=== PATIENT | male | born 1955 | race Two or more races ===

== ENCOUNTER 2017-05-31 15:13 | Inpatient (IN) | payer MEDICARE, MEDICAID ==
[~2017-05-31] VITALS: Ht 170.2 cm; Wt 59.0 kg
--- NOTE | 2017-05-31 15:13 | NUR ---
PT BIBRA TO ER BED 15. PER REPORT OD ON 25 PILLS OF KLONOPIN 0.5 W/ ALCOHOL. PER REPORT, PT IS DEPRESSED AND WANTS TO BECAUSE OF FAMILY ISSUES. PT LETHARGIC, GOWNED AND PLACED ON MONITOR. STABLE VITALS. AWAITING MD ROBERTS.
--- NOTE | 2017-05-31 15:19 | NUR ---
DR BUITRAGO AT BEDSIDE FOR EVAL.
[2017-05-31] MEDS ORDERED: IV NS 0.9% 1,000 ML BAG IV ONE (15:30)
[2017-05-31] MEDS ORDERED: CHARCOAL/SORBITOL SOLUTION 25 G/120 ML TUBE PO ONE (15:30)
[2017-05-31 15:40] LABS: BASOPHILS # (AUTO) 0.1 /CMM (0.0-0.2); BASOPHILS % (AUTO) 0.7 % (0.0-2.0); EOSINOPHILS # (AUTO) 0.3 /CMM (0.0-0.7); EOSINOPHILS % (AUTO) 3.3 % (0.0-6.0); HEMATOCRIT 42 % (39-51); LYMPHOCYTES # (AUTO) 2.4 /CMM (0.8-4.8); MEAN CORPUSCULAR HEMOGLOBIN 31 PG (26.0-33.0); MEAN CORPUSCULAR HGB CONC 33 g/dl (31.0-36.0); MEAN CORPUSCULAR VOLUME 91 fL (80-96); MONOCYTES # (AUTO) 0.6 /CMM (0.1-1.30); MONOCYTES % (AUTO) 6.2 % (2.0-12.0); NEUTROPHILS # (AUTO) 5.7 /CMM (1.8-8.9); NEUTROPHILS % (AUTO) 63.8 % (43.0-81.0); PLATELET COUNT (AUTO) 250 /CMM (150-450); RDW COEFFICIENT OF VARIATION 12.8 (11.5-15.0); WHITE BLOOD COUNT (AUTO) 9.1 K/uL (4.3-11.0)
[2017-05-31 15:47] LABS: CARBON DIOXIDE 28 mmol/L (21-32); CHLORIDE 103 mmol/L (98-107); CREATININE 0.8 mg/dL (0.6-1.3); GLUCOSE 87 mg/dL (74-106); POTASSIUM 3.6 mmol/L (3.5-5.1); SODIUM SERUM 138 mmol/L (136-145); UREA NITROGEN, BLOOD 8 mg/dL (7-18)
[2017-05-31 15:53] LABS: ACETAMINOPHEN < 2 ug/ml (10-30); ALANINE AMINOTRANSFERASE 17 U/L (12-78); ALBUMIN 3.5 g/dL (3.4-5.0); ALCOHOL, BLOOD 98 mg/dL (0-0); ALKALINE PHOSPHATASE 67 U/L (46-116); ASPARTATE AMINOTRANSFERASE 20 U/L (15-37); BILIRUBIN,DIRECT 0.1 mg/dL (0.0-0.2); BILIRUBIN,TOTAL 0.3 mg/dL (0.2-1.0); SALICYLATE 4.3 mg/dL (2.8-20.0); TOTAL PROTEIN, SERUM 6.9 g/dL (6.4-8.2)
[2017-05-31] MEDS ORDERED: ROSU5TAB PO (16:45)
[2017-05-31] MEDS ORDERED: CLON0.5T4 PO (16:45)
[2017-05-31] MEDS ORDERED: ICOS1CAP PO (16:45)
[2017-05-31] MEDS ORDERED: PREG25CA PO (16:45)
--- NOTE | 2017-05-31 16:56 | NUR ---
CALLED [facility], THEY SAID TO MONITOR PATIENT FOR 4-5 HOURS.
--- NOTE | 2017-05-31 16:58 | NUR ---
CALL FROM [facility] ALVARENGA SUP, ASSIGNED TO 116-1,WAITING FOR PATIENT TO BE D/C
--- NOTE | 2017-05-31 17:15 | NUR ---
REPORT GIVEN TO RYLEY. PT AWAITING TRANSFER TO FLOOR.
[2017-05-31 18:30] VITALS: BP 118/74
--- NOTE | 2017-05-31 18:30 | NUR ---
RN FRANK NOTE: RECEIVED PATIENT IN BED, WITH EYES CLOSED AND ALERT TO HIS NAME, BUT LETHARGIC MOST OF THE TIME. NOTED WITH O2 @3L/MIN VIA NC SATURATING @ 96%. RESPIRATION EVEN AND UNLABORED. DENIED PAIN. DAUGHTER, CLEO PRESENT AT THE BEDSIDE. ON SLACK COOPER, SR= 65. NOTED WITH NGT PLACED ON (R) NARE. KEPT NPO PER MD ORDER. SIDERAILS UP. BED ALARM AND LOCKED AT ALL TIMES. CALL LIGHT WITHIN REACH.
[2017-05-31] MEDS ORDERED: IV NS 0.9% 1,000 ML IV PRN (18:46)
[2017-05-31] MEDS ORDERED: Z GUARD REMEDY 2 OZ OINT TP PRN (19:00)
[2017-05-31] MEDS ORDERED: MAG HYDROX/AL HYDROX/SIMETH 30 ML UDC PO PRN (19:00)
[2017-05-31] MEDS ORDERED: ONDANSETRON HCL/PF 4 MG/2 ML VIAL IVP PRN (19:00)
[2017-05-31] MEDS ORDERED: ACETAMINOPHEN 325 MG TABLET PO PRN (19:00)
[2017-05-31] MEDS ORDERED: HYDROCODONE/APAP 5/325MG 1 EACH TABLET PO PRN (19:00)
[2017-05-31] MEDS ORDERED: MAGNESIUM HYDROXIDE 30 ML UDC PO PRN (19:00)
--- NOTE | 2017-05-31 19:30 | NUR ---
RN FRANK NOTE: PATIENT REMAINED ON 1:1 SITTER FOR SAFETY. REPORT GIVEN TO CHIRAG CASILLAS FOR CONTINUITY OF CARE. PATIENT'S DAUGHTER, CLEO REMAINED AT THE BEDSIDE.
--- NOTE | 2017-05-31 19:30 | NUR ---
FRANK RN INITIAL NOTES RECEIVED ASLEEP, AROUSABLE, LETHARGIC. DAUGHTER ANI AT BEDSIDE. PATIENT UNABLE TO PROVIDE INFORMATION. DAUGHTER ABLE TO PROVIDE INFORMATION. NO S/S OF PAIN OR DISCOMFORT. NO RESPIRATORY DISTRESS NOTED, 3LPMO2 VIA NC. ON TELE MONITOR SR 68. SKIN WARM AND DRY TO TOUCH. WITH RIGHT NARE NGT PATENT AND INTACT, IN PLACE. HOB ELEVATED. PER DAUGHTER, SHE WISHES HER FATHER TO BE FULL CODE. PER DAUGHTER PATIENT HAS HX OF ANXIET AND DEPRESSION. PATIENT OVERDOSED ON KLONOPIN MEDICATION. 1:1 SITTER AT BEDSIDE. BED ALARM ON. HOB ELEVATED. SIDE RAILS UP AND LOCKED. BED KEPT AT LOWEST POSITION. CALL LIGHT KEPT WITHIN EASY REACH. WILL CONTINUE TO MONITOR.
[2017-05-31 20:00] VITALS: BP 101/56
--- NOTE | 2017-05-31 21:33 | NUR ---
alexey rn notes received call from [facility], updated on patient.
--- NOTE | 2017-05-31 22:50 | NUR ---
FRANK RN NOTES PATIENT MORE AWAKE A/OX2, SLEEPY. REQUESTING TO DRINK WATER. INFORMED FORENSIC STRUCTURAL ENGINEER FRANCIS COMPARO. WITH ORDERS OK TO START DIET 2GM NA.
--- NOTE | 2017-05-31 22:52 | NUR ---
FRANK RN NOTES GAVE PATIENT WATER, HOB 90 DEGREES. NO DIFFICULTY WITH SWALLOWING. WILL CONTINUE TO MONITOR.
[2017-06-01] VITALS: BP 121/64
[2017-06-01 04:00] VITALS: BP 112/58
[2017-06-01 07:08] LABS: EOSINOPHILS # (AUTO) 0.1 /CMM (0.0-0.7); HEMATOCRIT 41 % (39-51); HEMOGLOBIN 13.8 g/dL (13.5-17.5); LYMPHOCYTES # (AUTO) 1.9 /CMM (0.8-4.8); LYMPHOCYTES % (AUTO) 13.9 % (20.0-44.0); MEAN CORPUSCULAR HEMOGLOBIN 31 PG (26.0-33.0); MEAN CORPUSCULAR HGB CONC 34 g/dl (31.0-36.0); MEAN CORPUSCULAR VOLUME 93 fL (80-96); MONOCYTES # (AUTO) 0.7 /CMM (0.1-1.30); NEUTROPHILS # (AUTO) 11.1 /CMM (1.8-8.9); NEUTROPHILS % (AUTO) 80.1 % (43.0-81.0); PLATELET COUNT (AUTO) 218 /CMM (150-450); RDW COEFFICIENT OF VARIATION 13.7 (11.5-15.0); RED BLOOD CELL COUNT(AUTO) 4.43 MIL/uL (4.5-6.0); WHITE BLOOD COUNT (AUTO) 13.8 K/uL (4.3-11.0)
--- NOTE | 2017-06-01 07:10 | NUR ---
RN INITIAL NOTES: REC'D PT AWAKE ON BED, NOT IN ANY DISTRESS, A/O X 3. ON ROOM AIR, DENIES SOB. ON TELEMONITOR, SR W/ HR 73 BPM. HAS NGT ON R NARE, CLAMPED. HAS L AC G20, PL W/ NS X 75 CC/HR INFUSING WELL. 1:1 SITTER (INTERNAL WHOLESALER) AT BEDSIDE. PT IS CALM, RESTING COMFORTABLY ON BED. WHEN ASKED HE DENIES HURTING HIMSELF AT THIS TIME. PROVIDED COMFORT & SAFETY ENVIRONMENT. CALL LIGHT PLACED W/IN REACH. BED KEPT LOW & IN LOCKED POSITION. WILL CONTINUE TO MONITOR & ATTEND PT NEEDS. DTR ANI VERBALIZED THAT PT WANTED TO WALK ALONG THE HALLWAY. FWW PROVIDED. PT'S GAIT IS UNSTEADY. DTR W/ PT AT ALL TIME.
[2017-06-01 07:19] LABS: CALCIUM, SERUM 9.2 mg/dL (8.5-10.1); CREATININE 0.9 mg/dL (0.6-1.3); PHOSPHORUS 3.6 mg/dL (2.5-4.9); POTASSIUM 4.3 mmol/L (3.5-5.1)
[2017-06-01 07:29] LABS: THYROID STIMULATING HORMONE 0.702 uIU/mL (0.358-3.74)
--- NOTE | 2017-06-01 07:30 | NUR ---
FRANK RN CLOSING NOTES PATIENT AWAKE A/OX3, AMBULATED AROUND FLOOR WITH SITTER WITH FWW STEADY GAIT. NO C/O PAIN OR DISCOMFORT. NO RESPIRATORY DISTRESS NOTED. ALL NEEDS ANTICIPATED AND MET. IVF RUNNING. SIDE RAILS UP AND LOCKED. BED KEPT AT LOWEST POSITION. SITTER AT BEDSIDE. CALL LIGHT KEPT WITHIN EASY REACH. CONTINUITY OF CARE ENDORSED TO AM NURSE.
[2017-06-01 08:00] VITALS: BP 120/62
[2017-06-01] MEDS ORDERED: Icosapent Ethyl (Vascepa) 1 GM PO SCH (09:00)
[2017-06-01] MEDS ORDERED: PANTOPRAZOLE 40 MG VIAL IV SCH (09:00)
[2017-06-01] MEDS ORDERED: LORAZEPAM 1 MG TABLET PO PRN (10:00)
--- NOTE | 2017-06-01 10:20 | NUR ---
RN NOTES: PT SEEN & EXAMINED BY DR. YANEZ. PER , PT IS MEDICALLY UNSTABLE TO BE DC & WANTED TO KEEP HIM HERE IN THE HOSPITAL FOR NOW. THIS WAS EXPLAINED TO THE PT & DTR HOWEVER PT WANTED TO LEAVE AMA. DR. YANEZ MADE AWARE W/ ORDERS TO CALL [facility] TO FURTHER EVALUATE THE PT. IF [facility] SAID NOT CLEAR TO GO HOME THEN PT NEEDS TO BE PUT ON HOLD. JUAN MANUEL LANGLEY ALSO INFORMED & SAID HE WILL SEE THE PT TODAY. MAGALYS FROM [facility] CAME & EVALUATED THE PT IF SAFE TO BE DC TO HOME TODAY. PER MAGALYS, PT IS OKAY TO BE DC TO HOME TODAY. CASE WAS DISCUSSED BY MAGALYS W/ THE DTR. PER DTR ANI, PT WILL HAVE HELP AT HOME. PT'S SISTER WILL BE W/ HIM 15/11 AND THAT ALL THE MEDICATIONS THAT THE PT TOOK WAS ALL TAKEN OUT FROM HIM. OVERHEAD DR. YANEZ WELL LEFT HIM A VM TO INFORM ABOUT THE CRISIS TEAM EVALUATION WELL PT INSISTING TO BE LEAVE AMA. AWAITING FOR CALL BACK. CALLED SHIVAM ZAMBRANO AGAIN TO INFORM HIM THAT PT & DTR CANNOT WAIT FORM HIM & THEY WANTED TO LEAVE AMA. PT SIGNED AMA FORM.
--- NOTE | 2017-06-01 10:30 | NUR ---
PUBLIC RELATIONS SUPERVISOR NOTES: PT LEFT AMA VERBALIZED THAT HE CANNOT WAIT FOR SHIVAM ZAMBRANO. RISKS EXPLAINED TO THE PT WELL W/ THE DTR BUT STILL INSISTED TO GO HOME. NGT & IV ACCESS REMOVED, PT TOLERATED THE PROCEDURE WELL. PER PT & DTR, HE IS NOT THINKING OF HURTING HIMSELF ANYMORE AND WHAT HAPPENED TO HIM WAS JUST AN ISOLATED CASE AND NOT INTENTIONAL. SAFETY MEASURES DISCUSSED W/ THE PT W/ VERBALIZATION OF UNDERSTANDING. ALL BELONGINGS WITH THE PT. AMA FORM SIGNED BY THE PT. PT LEFT THE FACILITY VIA WHEELCHAIR ACCOMPANIED BY DTR. NO CONCERNS IDENTIFIED AT THIS TIME. SHIVAM ZAMBRANO MADE AWARE THAT PT ALREADY LEFT AMA.
[2017-06-01] MEDS ORDERED: ATORVASTATIN 10 MG TABLET PO SCH (22:00)
== END 2017-06-01 10:56 | disposition left against medical advice (07) | DRG 918 ==
LOC: ER 15:15 → TELE1 17:13 → TELE-TD 18:53
PROVIDERS: ADMIT Nurse Practitioner Acute Care; ATTEND Nurse Practitioner Acute Care
DX: T42.4X1A Poisoning by benzodiazepines, accidental (unintentional), initial encounter (principal); E78.5 Hyperlipidemia, unspecified; F17.200 Nicotine dependence, unspecified, uncomplicated; F32.9 Major depressive disorder, single episode, unspecified; Z79.899 Other long term (current) drug therapy; Y92.009 Unspecified place in unspecified non-institutional (private) residence as the place of occurrence of the external cause; Z85.51 Personal history of malignant neoplasm of bladder; Z90.5 Acquired absence of kidney; F10.129 Alcohol abuse with intoxication, unspecified; I10 Essential (primary) hypertension; I70.0 Atherosclerosis of aorta
CPT/HCPCS: 36415; 71045-TC; 80048-TC; 80061-TC; 80076-TC; 83735-TC; 84100-TC; 84443-TC; 85025-TC; 87081-TC; A4606; C9113; G0480; J7030; Z7610